=== PATIENT | male | born 1985 | race Two or more races ===

== ENCOUNTER 2018-09-18 17:47 | Emergency (ER) | payer OTHER ==
[~2018-09-18] VITALS: Ht 165.1 cm; Wt 63.5 kg
[2018-09-18] MEDS ORDERED: LIDOCAINE 1% INJ 50 ML MDV IJ ONE ×2 (18:00→18:06)
[2018-09-18] MEDS ORDERED: TDAP [DIPH/PERTUSSIS/TET] 0.5 ML VIAL IM ONE ×2 (18:00)
[2018-09-18] MEDS ORDERED: BACITRACIN ZINC OINT PACKET 1 EA PACKET TP ONE ×2 (18:00→18:06)
--- NOTE | 2018-09-18 18:24 | NUR ---
BIB PD FOR MEDICAL CLEARANCE, L HAND LACERATION. NOT UTD TO TETANUS SHOT PT STATES INJURED S/P JUMPING A FENCE THIS MORNING. NO BLEEDING NOTED. PATIENT ASSISTED TO ROOM AND BED. NO DISTRESS NOTED. WILL MONITOR.
--- NOTE | 2018-09-18 19:13 | NUR ---
ENDORSED TO CHIKA CHACON CARLOS EDUARDO.
--- NOTE | 2018-09-18 20:46 | NUR ---
PT MEDICALLY CLEARED FOR BOOKING. IN CUSTODY. LEFT WITH [employer]. PT AMBULATORY W STEADY GAIT.
[2018-09-18 20:47] VITALS: BP 139/94
== END 2018-09-18 20:48 ==
LOC: ER 17:52
DX: S61.412A Laceration without foreign body of left hand, initial encounter (principal); Z60.2 Problems related to living alone; W23.0XXA Caught, crushed, jammed, or pinched between moving objects, initial encounter; Y93.02 Activity, running; Y92.89 Other specified places as the place of occurrence of the external cause; Y99.8 Other external cause status
CPT/HCPCS: 12001; 73130; 90471; 90715; 99283; A6402; A6403; J3490

== ENCOUNTER 2018-09-20 12:55 | Emergency (ER) | payer OTHER ==
[~2018-09-20] VITALS: Ht 170.2 cm; Wt 69.9 kg
[2018-09-20 13:05] VITALS: BP 151/87
== END 2018-09-20 13:54 ==
LOC: ER 12:57
DX: S61.412D Laceration without foreign body of left hand, subsequent encounter (principal); Z60.2 Problems related to living alone; X58.XXXD Exposure to other specified factors, subsequent encounter
CPT/HCPCS: 99283; A6402